=== PATIENT | male | born 1975 | race Caucasian/White ===

== ENCOUNTER 2020-04-16 08:36 | Outpatient (CLI) | payer OTHER ==
[2020-04-16 16:20] LABS: SARS-CoV-2 MS2 Positive; SARS-CoV-2 N Gene Negative; SARS-CoV-2 S Gene Negative; SARS-CoV-2 by NAA Not Detected (NotDetected); SARS-CoV-2 orf1ab Negative
== END 2020-04-16 08:37 | disposition home or self-care (01) ==
LOC: LABBT 08:36
PROVIDERS: ATTEND Nurse Practitioner Family
DX: Z13.9 Encounter for screening, unspecified (principal); Z20.828 Contact with and (suspected) exposure to other viral communicable diseases
CPT/HCPCS: 87635; U0003

== ENCOUNTER → 2020-04-19 | Day surgery (SDC) | payer OTHER ==
[2020-04-18 14:03] VITALS: BMI 26.6
[~2020-04-19] MED LIST: Lidocaine 1% PF 5 ML VIAL ONE; Sodium Bicarbonate 2.5 MEQ/5 ML VIAL ONE
--- NOTE | 2020-04-19 15:08 | ULT ---
Sonographic guided left thyroid nodule FNA HISTORY: Thyroid nodule. FINDINGS: After explaining the procedure and answering all questions, the anterior aspect of the neck was prepped and draped in usual sterile fashion. Sterile technique, buffered local anesthesia, sonographic guidance, and a medial approach were used t o carefully advance a 25-gauge needle into the heterogeneous predominantly isoechoic mass at the central portion of the left thyroid lobe. A total of 4 fine needle aspirates were obtained and submitted to pathology personnel for processing. No evidence of complication. Patient tolerated the procedure well and was dismissed in good condition. IMPRESSION : Technically successful sonographic guided FNA left thyroid lobe mass. Pathology is pending.
[2020-04-19 15:11] VITALS: BP 121/74; TEMP 98.2
== END ==
LOC: ULT 12:30
PROVIDERS: ATTEND Nurse Practitioner Family
PROC: 0GBG3ZX Excision of Left Thyroid Gland Lobe, Percutaneous Approach, Diagnostic (ICD-10-PCS; principal; 2020-04-19)
PROC: BG44ZZZ Ultrasonography of Thyroid Gland (ICD-10-PCS; principal; 2020-04-19)
DX: E04.1 Nontoxic single thyroid nodule (principal); Z88.1 Allergy status to other antibiotic agents
CPT/HCPCS: 60100; 76942; 88173